=== PATIENT | female | born 1980 | race Caucasian/White ===

== ENCOUNTER 2025-01-10 14:48 | Outpatient (AMB) | payer MEDICARE, MEDICAID, SELFPAY ==
--- NOTE | 2025-01-10 14:49 | MHC.PC.OV ---
Vital Signs 01/10/25 14:52 Height 5 ft 3.5 in Weight 164 lb BMI 28.6 BP 98/60 Blood Pressure Location Lt brachial Position Sitting Respiration 16 Pulse 74 Pulse Source Pulse Oximeter Temp 96.8 F Temp Source Temporal Artery Scan Pulse Oximetry (%) 97 Oxygen Delivery Method Room Air Intake Visit Reasons: routine - see comments, reestablish care Public Health Nutritionist Required: No Accompanied by: Self / Same As Patient Allergies milnacipran (From Savella) Adverse Reaction (Severe, Verified 01/10/25 14:49) suicidal ideation bupropion (From Wellbutrin) Adverse Reaction (Intermediate, Verified 01/10/25 14:49) sedation dexamethasone (From Decadron) Adverse Reaction (Intermediate, Verified 01/10/25 14:49) menorrhagia Iodinated Contrast Media (Contrast Dye) Adverse Reaction (Intermediate, Verified 01/10/25 14:49) Flushing Penicillins Adverse Reaction (Intermediate, Verified 01/10/25 14:49) Hives tizanidine Adverse Reaction (Intermediate, Verified 01/10/25 14:49) mental status changes fentanyl Adverse Reaction (Unknown, Verified 01/10/25 14:49) Unknown Medication List - Last Reconciled 01/10/25 by Marla Meneses MD acetaminophen ER 650 mg PO Q8H albuterol sulfate 90 mcg/actuation 2 puffs inhalation QID PRN budesonide-formoterol 80-4.5 mcg/actuation (Symbicort) 1 inh inhalation BID carisoprodol 350 mg PO TID cholecalciferol (vitamin D3) 1,250 mcg PO QWEEK colchicine 0.6 mg PO BID PRN ferrous gluconate 324 mg PO TID fluticasone propionate 50 mcg/actuation intranasal DAILY lidocaine HCl 2% (Lidocaine Viscous) 10 mL PO TID morphine ER 30 mg PO Q12H naproxen sodium 220 mg PO BID ondansetron HCl 4 mg PO Q8H PRN phytonadione (vitamin K1) 100 mcg PO DAILY Tobacco use date assessed: 01/10/25 Dental Screening Dental Screen Date: 01/10/25 Did you have a dental visit in the last 12 months?: Yes Did you have a dental problem in the last 6 months where you did not have access to dental care?: No Was dental information given to patient?: Patient has dentist HPI HPI Comments History of Present Illness Details The patient is a 44 year old female presenting to [facility] care and for management of chronic pain and medications. Chronic Pain: The patient reports experiencing nocturnal pain characterized as jennifer horse-like cramps in the left tibia and a locking sensation in the foot, causing significant pain upon movement. The patient's pain medication regimen was recently altered by a previous provider, who discontinued the immediate-release opioid and reduced the long-acting morphine from twice a day to once a day. Since these meds have been changed patient has not been able to function as she was when she was on her original regimen. This medication adjustment resulted in increased pain, insomnia, and the patient being in bed most of the day. The patient has not taken morphine since October. For mobility, the patient uses a cane and a walker, which helps prevent falls and provides a place to sit during activities like grocery shopping. Asthma and Productive Cough: The patient manages respiratory symptoms with a Symbicort inhaler and an albuterol inhaler as needed. For the past week, the patient has had a productive cough with blackish-brown sputum. The patient used a nebulizer before the visit for symptom relief. History of Drug-Induced Gastritis: Noted increased abdominal pain with use of naproxen Pt also notes increased discomfort dorsal surface of right hand, some pain with flexion and extension of wrist. Pt reports in terms of her nutrition she has been drinking 4 boost supplement drinks and has gained weight. [facility] Medical History (Updated 01/10/25 @ 17:57 by Marla Meneses MD) Therapeutic drug monitoring Vitamin D deficiency Lumbar spondylolysis Lumbar radiculitis Cervical spinal stenosis Iron deficiency anemia Myofascial pain Unspecified asthma Hypotension Fibromyalgia Surgical History (Updated 01/10/25 @ 11:25 by Marla Meneses MD) H/O eye surgery H/O tubal ligation Previous section History of tonsillectomy Family History (Updated 01/10/25 @ 11:33 by Marla Meneses MD) Sister Breast cancer Maternal Aunt Breast cancer Maternal Grandmother Colon cancer Other Coronary artery disease Diabetes mellitus Lung cancer Mixed hyperlipidemia Primary hypertension Renal cancer Social History Housing: Apartment Patient Tobacco Use Status: Former Tobacco user Years Smoked: 20-25 years e-Cigarette/Vaping Use: Never Used service: No Current occupational status: disabled Questionnaire PHQ-9 Over the last 2 weeks, how often have you been bothered by any of the following problems? 1. Little interest or pleasure in doing things: not at all 2. Feeling down, depressed, or hopeless: not at all 3. Trouble falling or staying asleep, or sleeping too much: several days 4. Feeling tired or having little energy: several days 5. Poor appetite or overeating: several days 6. Feeling bad about yourself - or that you are a failure or have let yourself or your family down: not at all 7. Trouble concentrating on things, such as reading the newspaper or watching television: not at all 8. Moving or speaking so slowly that other people could have noticed. Or the opposite - being so fidgety or restless that you have been moving around a lot more than usual: not at all 9. Thoughts that you would be better off or of hurting yourself in some way: not at all Total score: 3 Depression Screening Interpretation: Negative Depression Screening Done: Yes 90608 - PHQ-9 Billing: Yes Source: Developed by Drs. Tom Ruelas, Moni Pineda, Trace Gardner and colleagues, with an educational netta from [employer]. AUDIT C Alcohol Use Questionnaire (AUDIT-C) 1. How often do you have a drink containing alcohol?: Never 3. How often do you have six or more drinks on one occasion?: Never Total Score: 0 Review of Systems Narrative Review of Systems - Constitutional: Reports intentional weight gain. - HEENT: Reports using a hearing aid (right ear). - Respiratory: Reports a productive cough with blackish-brown sputum for the past week. - Gastrointestinal: Reports good appetite. - Reports history of severe stomach pain after taking naprosyn. - Musculoskeletal: per hpi - Neurological: per hpi Physical exam (Primary Care) Vital Signs: Last Vital Signs Temp 96.8 F 01/10/25 14:52 Pulse 74 01/10/25 14:52 Resp 16 01/10/25 14:52 BP 98/60 01/10/25 14:52 Pulse Ox 97 01/10/25 14:52 Oxygen Delivery Method Room Air 01/10/25 14:52 BMI result Body Mass Index 28.6 Tobacco/Smoking Status: Tobacco use Status Tobacco use date assessed 01/10/25 01/10/25 14:51 Patient Tobacco Use Status Former Tobacco user 01/10/25 14:59 e-Cigarette/Vaping Use Never Used 01/10/25 14:59 PHQ-9: PHQ-9 Score PHQ-9: Total score 3 01/10/25 14:51 Depression Screening Interpretation: Negative Narrative Physical Exam - ENT: normal tympanic membranes bilaterally -Pulmonary: Auscultation reveals slight wheezing and some coarseness, with good air movement. - Cardiovascular: Heart has a normal rate and regular rhythm with normal sounds. - Msk: right hand- pain with ulnar deviation of right wrist, no redness Coding Level of Care Code Est Pt Level 4 (72555) Complex visit Add On G2211 Diagnoses Fibromyalgia M79.7 Myofascial pain M79.18 Moderate persistent asthma with acute exacerbation J45.41 Asthma severity: moderate Asthma persistence: persistent Asthma complication type: with acute exacerbation Additional Codes PHQ-9 - 23254 - PHQ-9 Billing: Yes ([id number]) Assessment & Plan Assessment & Plan (1) Fibromyalgia: Code(s): M79.7 - Fibromyalgia Category: Medical (2) Myofascial pain: Code(s): M79.18 - Myalgia, other site Category: Medical (3) Unspecified asthma: Code(s): J45.909 - Unspecified asthma, uncomplicated Category: Medical Qualifiers: Asthma severity: moderate Asthma persistence: persistent Asthma complication type: with acute exacerbation Qualified Code(s): J45.41 - Moderate persistent asthma with (acute) exacerbation Plan Assessment and Plan 1. Chronic Pain Syndrome The patient's chronic pain is currently poorly controlled following change in regimen. This has resulted in significant functional impairment, insomnia, and distress. Patient was previously evaluated by set painter at [facility]. We will re-establish a stable and effective pain management plan. A new pain contract will be signed. After obtaining a urine toxicology screen, the plan is to prescribe morphine ER 30 mg once daily and morphine IR 15 mg twice daily for breakthrough pain, and continue carisoprodol (Soma). 2. Asthma with Productive Cough The patient reports a one-week history of productive cough with dark sputum, and the exam reveals slight wheezing, suggesting a possible exacerbation or bronchitis. The patient will continue using the Symbicort and albuterol inhalers as needed and monitor symptoms. Further evaluation will be pursued if symptoms worsen. Take z-pack in the interim and use nebulizer machine. 3. Health Maintenance and Care Coordination As the patient is re-establishing care, we will obtain comprehensive fasting labs and a urine toxicology screen. We will request medical records from the previous practice. The patient will proceed with a scheduled endoscopy at [facility] in February . 4. Right hand pain- differential includes tendinitis, continue to monitor use ice prn, topical rub, update if no improvement in symptoms. Plan - Obtain fasting labs and a urine toxicology screen. - Continue vitamin D. - Pending results of the urine toxicology screen, will prescribe Morphine ER 30 mg once daily and Morphine IR 15 mg twice daily. - Continue carisoprodol (Soma). - Continue Symbicort and albuterol inhalers as needed for asthma. - Pain management contract signed Discussion Notes The plan of care was outlined, which includes obtaining fasting labs and a urine toxicology screen. We also discussed the necessity of signing a new pain management contract. Patient Instructions - Please go for your fasting lab work and urine test tomorrow morning. - After your lab results are reviewed, I will send new prescriptions for your pain medication - The new pain medication plan will be one long-acting morphine (30 mg) at night and one short-acting morphine (15 mg) twice a day for breakthrough pain. - Continue using your inhalers (Symbicort and albuterol) as needed for your breathing. Orders: Orders Comprehensive Met. Panel Today D50.9 - Iron deficiency anemia, unspecified, E55.9 - Vitamin D deficiency, unspecified, I95.9 - Hypotension, unspecified IRON PROFILE Today D50.9 - Iron deficiency anemia, unspecified, E55.9 - Vitamin D deficiency, unspecified, I95.9 - Hypotension, unspecified TSH reflex Free T4 Today D50.9 - Iron deficiency anemia, unspecified, E55.9 - Vitamin D deficiency, unspecified, I95.9 - Hypotension, unspecified Lipid Panel Today D50.9 - Iron deficiency anemia, unspecified, E55.9 - Vitamin D deficiency, unspecified, I95.9 - Hypotension, unspecified Cannabinoid Screen Urine Today Z51.81 - Encounter for therapeutic drug level monitoring Alcohol, Ethyl Urine Screen Today Z51.81 - Encounter for therapeutic drug level monitoring Opiate Screen Urine Today Z51.81 - Encounter for therapeutic drug level monitoring Magnesium Today I95.9 - Hypotension, unspecified Complete Blood Count Auto Diff Today D50.9 - Iron deficiency anemia, unspecified, E55.9 - Vitamin D deficiency, unspecified, I95.9 - Hypotension, unspecified Ferritin Today D50.9 - Iron deficiency anemia, unspecified, E55.9 - Vitamin D deficiency, unspecified, I95.9 - Hypotension, unspecified Vitamin B12 Today D50.9 - Iron deficiency anemia, unspecified, E55.9 - Vitamin D deficiency, unspecified, I95.9 - Hypotension, unspecified Vitamin D 25-OH Total Today D50.9 - Iron deficiency anemia, unspecified, E55.9 - Vitamin D deficiency, unspecified, I95.9 - Hypotension, unspecified Cocaine Screen Urine Today Z51.81 - Encounter for therapeutic drug level monitoring Benzodiazepines Screen Urine Today Z51.81 - Encounter for therapeutic drug level monitoring Medications: New azithromycin For 250 mg dose pack: take 500 mg today (day 1), then 250 mg for 4 days (days 2-5) PO 6 tabs 0RF
[2025-01-10 14:52] VITALS: BP 98/60; PULSE 74; RESP 16; TEMP 36; O2SAT 97; BMI 28.6
--- OUTSIDE RECORDS SUMMARY | 2025-01-10 18:06 | XMS_ITS | Clinical Summary ---
Author Organization [facility] Address [address] [place] [address] Care Team Providers Care Fish Cutter Name Role Phone Pcp, No Primary Care Provider Unavailabl e Allergies Active Allergy Reactions Criticality Noted Date Comments Fentanyl Anaphylaxis High 05/07/2024 Medications No known medications Social History Tobacco Use Types Packs/Day Years Used Date Smoking Tobacco: Former Cigarettes Tobacco Cessation:Counseling Given: Not Answered Alcohol Use Standard Drinks/Week Comments Not Currently 0 (1 standard drink = 0.6 oz pur e alcohol) Comments Unknown Sex and Gender Information Value Date Recorded Sex Assigned at Female 12/31/2023 10:07 AM EST Legal Sex Female 10:03 AM EST Gender Identity Female 12/31/2023 10:07 AM EST Sexual Orientation Heterosexual (straight) 12/30 10:07 AM EST Last Filed Vital Signs Vital Sign Reading Time Taken Comments Blood Pressure 102/55 05/07/2024 8:45 AM EDT Pulse 65 05/07/2024 8:45 AM EDT Temperature 35.1 C (95.1 F) 05/07/2024 8:44 AM EDT Respiratory Rate - - Oxygen Saturation 99% 05/07/2024 8:45 AM EDT Inhaled Oxygen Concentration - - Weight 70 kg (154 lb 5.2 oz) 05/07/2024 8:44 AM EDT Height - - Body Mass Index - - Plan of Treatment Health Maintenance Due Date Last Done Comments Hepatitis C Virus Screening 1979 HIV Screening 10/16/1992 DTaP/Tdap/Td Vaccines (1 - Tdap) 10/16/1998 Hepatitis B Vaccines (1 of 3 - 19+ 3-dose series) 10/16/1998 Pap Smear (Ages 21-65) 10/16/2000 Mammogram 2019 Influenza Vaccine 09/10/2024 12/31/2017, , 01/02/2016, Additional history exists COVID-19 Vaccine ( season) 2024 Colonoscopy 10/16/2024 HPV Vaccines (No Doses Required) Completed Pneumococcal Vaccine: Pediatric (0-5 Years) and At-Risk Patients (6 to 49 Years) Aged Out No longer eligible based on patient's age to complete this topic Insurance MEDICARE PART A & B Care Teams Fish Cutter Relationship Specialty Start Date End Date Pcp, No PCP - General General Medicine 01/05/24
--- OUTSIDE RECORDS SUMMARY | 2025-01-10 18:06 | XMS_ITS | Clinical Summary ---
Author Organization [facility] Address [address] [place] [address] Care Team Providers Care Rack Puller Name Role Phone Marla Meneses MD Primary Care Provider [phone]- [phone] Surgical History Surgery Date Site/Laterality Comments TONSILLECTOMY PROCEDURE: HISTORICAL TONSILLECTOMY BREAST LUMPECTOMY [facility] age 19's Left PROCEDURE: HISTORICAL BREAST LUMPECTOMY; COMMENT: benign, just below left nipple SECTION 06/24/14 Disandro PROCEDURE: HISTORICAL ; COMMENT: healthy son 9.9&9, T.L. Medical History Medical History Date Comments Fibromyalgia DX:Fibromyalgia Bronchitis DX:Bronchitis Asthma 04/29/2011 DX:Asthma Goiter 04/01/2013 DX:Goiter Hyperlipidemia 04/15/2013 DX:Hyperlipidemi a Closed left ankle fracture age 13 casted DX:Cl osed left ankle fracture Family History Medical History Relation Name Comments Diabetes Father Liver cancer Father Lung cancer Grandparent 1 Colon cancer Maternal Grandmother Breast cancer Mother Diabetes Mother Diabetes Sister 1 Relation Name Status Comments Aunt 1 (Age 50's) MatAunt Breast CA age onset 40-50 Aunt 2 (Age 50's) Mat Aunt diffuse CA unknown type Aunt 3 (Age 63) Mat Aunt L ymphoma Aunt 4 Alive Mat Aunt-bilat breast cancer Dx'd age 46, mastectomies Brother (Age 15) murdered Father Alive CAD, diabetes, HTN, former smoker Grandparent 1 Grandparent 2 Maternal Grandmother (Age 61) di ed of cancer in lungs, smoker Mother Alive Diabetes, HTN, fibromyalgia, hyperlipidemia Paternal Grandmother Alive thyroid cancer Sister 1 Sister 2 Alive x3, 2 Bipolar, 1 Fibromyalgia, 1 Breast CA onset age 38 Social History Tobacco Use Types Packs/Day Years Used Date Smoking Tobacco: Former Cigarettes 0.3 Q uit: 11/29/2010 Smokeless Tobacco: Never Alcohol Use Standard Drinks/Week Comments No 0 (1 standard drink = 0.6 oz pur e alcohol) Comments Unknown Sex and Gender Information Value Date Recorded Sex Assigned at Not on file Legal Sex Female 1:13 AM EST Gender Identity Not on file Sexual Orientation Not on file Obstetrics History Plan of Treatment Health Maintenance Due Date Last Done Comments Breast Cancer Screening 1979 Hepatitis B Vaccines (1 of 3 - 19+ 3-dose series) 10/16/1998 Cervical Cancer Screening: Pap Smear 10/16/2000 HPV Vaccines (1 - 3-dose SCDM series) 10/16/2006 Depression Screening 02/11/2024 DTaP,Tdap,and Td Vaccines (3 - Td or Tdap) 05/17/2024 05/17/2014, 07/02/2011 COVID-19 Vaccine ( season) 2024 Influenza Vaccine (#1) 2024 8, 11/20/2016, 01/02/2016, Additional history exists RSV Immunization Adult Patients (1 - 1-dose 75+ series) 10/16/2054 Pneumococcal Vaccine: Pediatrics (0 to 5 Years) and At-Risk Patients (6 to 49 Years) Aged Out 07/03/2016, 04/01/2013 No longer eligibl e based on patient's age to complete this topic HIB Vaccines Aged Out No longer eligi ble based on patient's age to complete this topic Hepatitis A Vaccines Aged Out No long er eligible based on patient's age to complete this topic IPV Vaccines Aged Out No longer eligi ble based on patient's age to complete this topic MMR Vaccines Aged Out No longer eligi ble based on patient's age to complete this topic Meningococcal ACWY Vaccine Aged Out N o longer eligible based on patient's age to complete this topic Meningococcal B Vaccine Aged Out No l onger eligible based on patient's age to complete this topic RSV Immunization Patients Under 20 months Aged Out No longer eligible based on patient's age to complete this topic Varicella Vaccines Aged Out No longer eligible based on patient's age to complete this topic Care Teams Rack Puller Relationship Specialty Start Date End Date Marla Meneses MD [address] [place] [address] PCP - General 03/24/14
--- OUTSIDE RECORDS SUMMARY | 2025-01-10 18:06 | XMS_ITS ---
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
== END 2025-01-10 16:00 | disposition home or self-care (01) ==
LOC: HO.HMCHD 14:48
PROVIDERS: PCP Internal Medicine; Visit Provider Internal Medicine
DX: M79.7 Fibromyalgia (principal); M79.18 Myalgia, other site; J45.41 Moderate persistent asthma with (acute) exacerbation

== ENCOUNTER → 2025-01-10 14:48 | Outpatient (BNVA) | payer MEDICARE, MEDICAID, SELFPAY | PROVIDERS: PCP Internal Medicine; Visit Provider Internal Medicine | DX: M79.7 Fibromyalgia (principal); J45.41 Moderate persistent asthma with (acute) exacerbation; M79.641 Pain in right hand; Z51.81 Encounter for therapeutic drug level monitoring; Z13.31 Encounter for screening for depression; Z87.891 Personal history of nicotine dependence | CPT/HCPCS: 96127; 99212 ==

== ENCOUNTER 2025-01-11 08:23 | Outpatient (REF) | payer MEDICARE, MEDICAID, SELFPAY ==
--- OUTSIDE RECORDS SUMMARY | 2025-01-11 08:28 | XMS_ITS | Clinical Summary ---
Author Organization [facility] Address [address] [place] [address] Care Team Providers Care Assembly Line Worker Name Role Phone Marla Meneses MD Primary Care Provider +1- [phone] Surgical History Surgery Date Site/Laterality Comments TONSILLECTOMY [...] age to complete this topic Care Teams Assembly Line Worker Relationship Specialty Start Date End Date Marla Meneses MD [address] [place] [address] PCP - General 03/24/14
--- OUTSIDE RECORDS SUMMARY | 2025-01-11 08:28 | XMS_ITS | Clinical Summary ---
Author Organization [facility] Address [address] [place] [address] Care Team Providers Care Web Services Architect Name Role Phone Pcp, No Primary Care [...] MEDICARE PART A & B Care Teams Web Services Architect Relationship Specialty Start Date End Date Pcp, No PCP - General General Medicine 01/05/24
[2025-01-11 13:30] LABS: MANUAL DIFF FLAG NO
[2025-01-11 13:41] LABS: Hematocrit 37.5 % (37.0-47.0); Hemoglobin 12.1 g/dl (12.0-16.0); Imm Gran Abs Auto 0.03 X10*3/uL (0.00-0.03); Imm Gran Pct Auto 0.3 % (0.0-0.4); Lymphocytes Absolute Auto 1.8 X10*3/uL (1.2-4.9); Mean Corpuscular HGB Conc 32.3 g/dl (31.0-35.0); Mean Corpuscular Hemoglobin 29.4 pg (27.0-33.0); Mean Corpuscular Volume 91.0 fL (80.0-98.0); NRBC Abs Auto 0.000 X10*3/uL (0.0-0.012); NRBC Pct Auto 0.0 /100WBC (0.0-0.2); Platelet Count 310 X10*3/uL (160-400); Red Blood Count 4.12 X10*6/uL (4.20-5.50); White Blood Count 10.9 X10*3/uL (4.8-10.8)
[2025-01-11 13:46] LABS: Cannabinoid Screen Urine POSITIVE (Not Detect)
[2025-01-11 13:59] LABS: Alanine Aminotransferase 15 U/L (0-31); Albumin Level 4.2 g/dL (3.5-5.0); Alkaline Phosphatase 57 U/L (39-117); Anion Gap 11 (12-20); Aspartate Amino Transferase 25 U/L (5-31); Blood Urea Nitrogen 10 mg/dL (9-16); Calcium 9.3 mg/dL (8.4-10.2); Carbon Dioxide 30 mmol/L (22-29); Chloride 107 mmol/L (96-108); Cholesterol 233 mg/dL (<200); Estimated Glomerular Filt Rate > 60; HDL Cholesterol 66 mg/dL (>40); Iron 93 mcg/dL (30-160); Magnesium 2.1 mg/dL (1.6-2.6); Percent Iron Saturation 27 % (15-50); Potassium 4.9 mmol/L (3.3-5.1); Sodium 143 mmol/L (135-145); Total Iron Binding Capacity 345 mcg/dL (228-428); Total Protein 6.4 g/dL (6.5-8.0); Triglycerides 146 mg/dL (<150); Unsaturated Iron Binding 252 ug/dL
[2025-01-11 14:14] LABS: Ferritin 16 ng/mL (10-250)
[2025-01-11 14:18] LABS: Vitamin B12 604 pg/mL (200-900)
[2025-01-17 10:47] LABS: Alcohol, Ethyl Urine Screen NEGATIVE
== END 2025-01-11 08:24 | disposition home or self-care (01) ==
LOC: HO.HKASLDS 08:23
PROVIDERS: PCP Internal Medicine; Visit Provider Internal Medicine
DX: Z51.81 Encounter for therapeutic drug level monitoring (principal); Z13.29 Encounter for screening for other suspected endocrine disorder; I95.9 Hypotension, unspecified; D50.9 Iron deficiency anemia, unspecified; E55.9 Vitamin D deficiency, unspecified
CPT/HCPCS: 80053; 80061; 80307; 82306; 82607; 82728; 83540; 83735; 84443; 85025

== ENCOUNTER 2025-01-13 14:23 | Outpatient (REF) | payer MEDICARE, MEDICAID, SELFPAY ==
--- OUTSIDE RECORDS SUMMARY | 2025-01-13 19:56 | XMS_ITS | Encounter Summary ---
Author Organization [facility] [employer] [facility] Prior to 12/12/2023 Address [address] [place] [address] Care Team Providers Care Sheet Cutter Name Role Phone Madeline Rogers MD Primary Care Provider Marla Maravilla MD Primary Care Provider Kelsey reyes Encounter Details Date Type Department Care Team Description 03/20/2012 Night Triage Doc Medical Records [address] [place] [id number] Abstract, Provider Social History Tobacco Use Types Packs/Day Years Used Date Smoking Tobacco: Former Cigarettes 15 Q uit: 11/29/2010 Smokeless Tobacco: Never Alcohol Use Standard Drinks/Week Comments No 0 (1 standard drink = 0.6 oz pur e alcohol) Sex Assigned at Date Recorded Not on file documented as of this encounter Plan of Treatment Not on file documented as of this encounter Visit Diagnoses Not on filedocumented in this encounter Care Teams Sheet Cutter Relationship Specialty Start Date End Date Madeline Rogers MD PCP - General 06/10/08 03/23/14 Marla Meneses MD PCP - General 03/24/14 documented as of this encounter
--- OUTSIDE RECORDS SUMMARY | 2025-01-13 19:56 | XMS_ITS | Encounter Summary ---
Author Organization [facility] [employer] [facility] Prior to 12/12/2023 Address [address] [place] [address] Care Team Providers Care Supervisor Pipe Joints Name Role Phone Madeline Rogers MD Primary Care Provider Marla Maravilla MD Primary Care Provider Kelsey reyes Encounter Details Date Type Department Care Team Description 05/28/2010 Release of Information Medical Records [address] [place] [id number] Abstract, Provider Social History Tobacco Use Types Packs/Day Years Used Date Smoking Tobacco: Every Day Cigarettes 1 15 Comments:smokes 4-5 cigs qd Alcohol Use Standard Drinks/Week Comments Not Asked 0 (1 standard drink = 0.6 oz pur e alcohol) Sex Assigned at Date Recorded Not on file documented as of this encounter Plan of Treatment Not on file documented as of this encounter Visit Diagnoses Not on filedocumented in this encounter Care Teams Supervisor Pipe Joints Relationship Specialty Start Date End Date Madeline Rogers MD PCP - General 06/10/08 03/23/14 Marla Meneses MD PCP - General 03/24/14 documented as of this encounter
--- OUTSIDE RECORDS SUMMARY | 2025-01-13 19:56 | XMS_ITS | Encounter Summary ---
Author Organization [facility] Prior to 12/12/2023 Address [address] [place] [address] Care Team Providers Care Dietitian Helper Name Role Phone Madeline Rogers MD Primary Care Provider Marla Maravilla MD Primary Care Provider Kelsey reyes Encounter Details Date Type Department Care Team Description 03/20/2012 Telephone Adult Medicine [address] [address] Piyush Edmonds MD Social History Tobacco Use Types Packs/Day Years Used Date Smoking Tobacco: Former Cigarettes 15 Q uit: 11/29/2010 Smokeless Tobacco: Never Alcohol Use Standard Drinks/Week Comments No 0 (1 standard drink = 0.6 oz pur e alcohol) Sex Assigned at Date Recorded Not on file documented as of this encounter Miscellaneous Notes * Telephone Encounter - Madeline Rogers MD - 03/22/2012 9:22 AM EST FYI, since I do not see that this was handled on Friday. The Hydrocodone/APAP 10-300 #84 was given by Katie in Physiatry 02/14/12, 03/05/12 and 03/19/12, then I signed the patient's contract for [facility], #112 per 28 at [facility] on 03/20/12. I'll fax the #112 amount now, Friday AM, with note to pharmacist on Rx to cancel Katie's 03/19/12 ifnot already filled. 03/22/12 9:31am. Madeline Rogers MD * Telephone Encounter - Piyush Edmonds MD - 03/20/2012 3:52 PM EST Broom Man: Issue with pharmacy & wrong narcotic referred to nurse triage. Piyush Edmonds MD documented in this encounter Plan of Treatment Not on file documented as of this encounter Visit Diagnoses Not on filedocumented in this encounter Care Teams Dietitian Helper Relationship Specialty Start Date End Date Madeline Rogers MD PCP - General 06/10/08 03/23/14 Marla Meneses MD PCP - General 03/24/14 documented as of this encounter
--- OUTSIDE RECORDS SUMMARY | 2025-01-13 19:56 | XMS_ITS | Encounter Summary ---
Author Organization [facility] Prior to 12/12/2023 Address [address] [place] [address] Care Team Providers Care Domestic Technician Name Role Phone Madeline Rogers MD Primary Care Provider Marla Maravilla MD Primary Care Provider Kelsey reyes Encounter Details Date Type Department Care Team Description 05/05/2012 Director [facility] Report Medical Records [address] [place] [address] Sanjeev Soto MD Social History Tobacco Use Types Packs/Day [...] on filedocumented in this encounter Care Teams Domestic Technician Relationship Specialty Start Date End Date Madeline Rogers MD PCP - General 06/10/08 03/23/14 Marla Meneses MD PCP - General 03/24/14 documented as of this encounter
--- OUTSIDE RECORDS SUMMARY | 2025-01-13 19:56 | XMS_ITS | Encounter Summary ---
Author Organization [facility] Prior to 12/12/2023 Address [address] [place] [address] Care Team Providers Care Pharmacogeneticist Name Role Phone Madeline Rogers MD Primary Care Provider Marla Maravilla MD Primary Care Provider Kelsey reyes Encounter Details Date Type Department Care Team Description 06/12/2010 Hoop Riveting Machine Operator Helper Report Medical Records [address] [place] [address] Marco Oleary MD Social History Tobacco Use Types Packs/Day [...] on filedocumented in this encounter Care Teams Pharmacogeneticist Relationship Specialty Start Date End Date Madeline Rogers MD PCP - General 06/10/08 03/23/14 Marla Meneses MD PCP - General 03/24/14 documented as of this encounter
--- OUTSIDE RECORDS SUMMARY | 2025-01-13 19:56 | XMS_ITS | Encounter Summary ---
Author Organization [facility] Prior to 12/12/2023 Address [address] [place] [address] Care Team Providers Care Mop Handle Assembler Name Role Phone Madeline Rogers MD Primary Care Provider Marla Maravilla MD Primary Care Provider Kelsey reyes Encounter Details Date Type Department Care Team Description 03/18/2011 Transfer Records Medical Records [address] [place] [address] Social History Tobacco Use Types Packs/Day Years Used Date Smoking Tobacco: Former Cigarettes 1 15 Q uit: 11/29/2010 Smokeless Tobacco: Never Comments:smokes 4-5 cigs qd Alcohol Use Standard Drinks/Week Comments No 0 (1 standard drink = 0.6 oz pur e alcohol) Sex Assigned at Date Recorded Not on file documented as of this encounter Plan of Treatment Not on file documented as of this encounter Visit Diagnoses Not on filedocumented in this encounter Care Teams Mop Handle Assembler Relationship Specialty Start Date End Date Madeline Rogers MD PCP - General 06/10/08 03/23/14 Marla Meneses MD PCP - General 03/24/14 documented as of this encounter
--- OUTSIDE RECORDS SUMMARY | 2025-01-13 19:57 | XMS_ITS | Encounter Summary ---
Author Organization [facility] Prior to 12/12/2023 Address [address] [place] [address] Care Team Providers Care Steward Dishwasher Name Role Phone Madeline Rogers MD Primary Care Provider Unav Marla Lara MD Primary Care Provider Unava ilsilvano Reason for Visit * Reason Onset Date Comments Medication 01/17/2012 Encounter Details Date Type Department Care Team Description 01/17/2012 Telephone Physiatry - [address] [address] Katie Clinton PA-C Medication Social History Tobacco Use Types Packs/Day Years Used Date Smoking Tobacco: Former Cigarettes 15 Q uit: 11/29/2010 Smokeless Tobacco: Never Alcohol Use Standard Drinks/Week Comments No 0 (1 standard drink = 0.6 oz pur e alcohol) Sex Assigned at Date Recorded Not on file documented as of this encounter Miscellaneous Notes * Telephone Encounter - Keli Torres - 01/17/2012 4:40 PM EST Patient claims that the pharmacy only got one of her scripts after today's appointment. The vicoprofen did not make it. Patient aware that there is no provider in the Physiatry department until Friday. documented in this encounter Plan of Treatment Not on file documented as of this encounter Visit Diagnoses Not on filedocumented in this encounter Care Teams Steward Dishwasher Relationship Specialty Start Date End Date Madeline Rogers MD PCP - General 06/10/08 03/23/14 Marla Meneses MD PCP - General 03/24/14 documented as of this encounter
--- OUTSIDE RECORDS SUMMARY | 2025-01-13 19:59 | XMS_ITS | Encounter Summary ---
Author Organization [facility] Prior to 12/12/2023 Address [address] [place] [address] Care Team Providers Care Gang Miner Name Role Phone Madeline Rogers MD Primary Care Provider Marla Maravilla MD Primary Care Provider Unava ilsilvano Reason for Visit * Reason Onset Date Comments refill request 02/28/2012 Encounter Details Date Type Department Care Team Description 02/28/2012 Refill Physiatry - [place] [address] [place] [address] Katie Clinton PA-C refill request Social History Tobacco Use Types Packs/Day Years Used Date Smoking Tobacco: Former Cigarettes 15 Q uit: 11/29/2010 Smokeless Tobacco: Never Alcohol Use Standard Drinks/Week Comments No 0 (1 standard drink = 0.6 oz pur e alcohol) Sex Assigned at Date Recorded Not on file documented as of this encounter Miscellaneous Notes * Telephone Encounter - Madeline Sharan - 02/28/2012 10:35 AM EST (THE MEDICATION REQUESTED IS ON THE MED LIST ABOVE) All of the medications requested were on the CURRENT MEDS list Did you check the Pharmacy information above?: YES Patient wants: 30 -day supply Patient would like script to be: E-PRESCRIBED/FAXED TO PHARMACY Is this a mail order prescription request ? NO Indicate how soon the patient needs the script: BY THE END OF THE DAY Patients current insurance carrier is: Payor: [employer] FFS Plan: FFS HMO $0 [employer] [id number] Product Type: MEDICAID RISK documented in this encounter Plan of Treatment Not on file documented as of this encounter Visit Diagnoses Not on filedocumented in this encounter Care Teams Gang Miner Relationship Specialty Start Date End Date Madeline Rogers MD PCP - General 06/10/08 03/23/14 Marla Meneses MD PCP - General 03/24/14 documented as of this encounter
--- OUTSIDE RECORDS SUMMARY | 2025-01-13 19:59 | XMS_ITS | Encounter Summary ---
Author Organization [facility] Prior to 12/12/2023 Address [address] [place] [address] Care Team Providers Care Row Boss Hoeing Name Role Phone Madeline Rogers MD Primary Care Provider Marla Maravilla MD Primary Care Provider Kelsey reyes Encounter Details Date Type Department Care Team Description 11/22/2013 Telephone Adult Medicine [address] [address] Madeline Rogers MD Social History Tobacco Use Types Packs/Day [...] on filedocumented in this encounter Care Teams Row Boss Hoeing Relationship Specialty Start Date End Date Madeline Rogers MD PCP - General 06/10/08 03/23/14 Marla Meneses MD PCP - General 03/24/14 documented as of this encounter
--- OUTSIDE RECORDS SUMMARY | 2025-01-13 19:59 | XMS_ITS | Encounter Summary ---
Author Organization [facility] Prior to 12/12/2023 Address [address] [place] [address] Care Team Providers Care Studio Assistant Name Role Phone Madeline Rogers MD Primary Care Provider Marla Maravilla MD Primary Care Provider Unava ilable Reason for Visit * Reason Onset Date Comments TEST RESULTS 07/09/2013 Encounter Details Date Type Department Care Team Description 07/09/2013 Telephone Adult Medicine [address] [address] Madeline Rogers MD TEST RESULTS Social History Tobacco Use Types Packs/Day Years Used Date Smoking Tobacco: Former Cigarettes 15 Q uit: 11/29/2010 Smokeless Tobacco: Never Alcohol Use Standard Drinks/Week Comments No 0 (1 standard drink = 0.6 oz pur e alcohol) Sex Assigned at Date Recorded Not on file documented as of this encounter Miscellaneous Notes * Telephone Encounter - Madeline Rogers MD - 07/09/2013 5:05 PM EDT I called patient, normal labs regarding bruising. 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 Sed rate of 2 is reassuring, normal CBC. Will observe for now, follow up next week if persists or any new symptoms. Electronically Signed By: Madeline Rogers MD 07/09/2013 5:07 PM * Telephone Encounter - María Sanz R.N. - 07/09/2013 4:53 PM EDT Some results are back in EMR * Telephone Encounter - Carolina Brandt - 07/09/2013 4:45 PM EDT Inform patient: ANY URGENT OR ABNORMAL RESULTS WIILL RESULT IN A CALL BACK TO THE PATIENT RONAN. Type of test: :blood work Date test was performed: 07.09.13 Where was the test performed: [facility] Who ordered this test?: Madeline Rogers Is the doctor here today?: YES Can the message wait until the doctor returns?: YES PATIENT STATES SHE WAS TOLD BY DR. ROGERS TO CALL THE OFFICE IF SHE DID NOT HEAR ANYTHING BY 4:30PM TODAY. STATES HER BLOOD WORK WAS STAT. PLEASE CALL IF PATIENT'S PCP IS NOT IN INSTRUCT PATIENT THAT THEY WILL RECEIVE A CALL BACK WHEN THE PCP IS IN THE OFFICE NEXT. documented in this encounter Plan of Treatment Not on file documented as of this encounter Visit Diagnoses Not on filedocumented in this encounter Care Teams Studio Assistant Relationship Specialty Start Date End Date Madeline Rogers MD PCP - General 06/10/08 03/23/14 Marla Meneses MD PCP - General 03/24/14 documented as of this encounter
--- OUTSIDE RECORDS SUMMARY | 2025-01-13 20:00 | XMS_ITS | Clinical Summary ---
Author Organization [facility] Address [address] [place] [address] Care Team Providers Care Pheresis Specialist Name Role Phone Marla Meneses MD Primary Care Provider [phone] Surgical History Surgery Date Site/Laterality Comments TONSILLECTOMY [...] age to complete this topic Care Teams Pheresis Specialist Relationship Specialty Start Date End Date Marla Meneses MD [address] [place] [address] PCP - General 03/24/14
--- OUTSIDE RECORDS SUMMARY | 2025-01-13 20:01 | XMS_ITS | Encounter Summary ---
Author Organization [facility] Prior to 12/12/2023 Address [address] [place] [address] Care Team Providers Care Packager Or Packer And Weigher Name Role Phone Madeline Rogers MD Primary Care Provider Marla Maravilla MD Primary Care Provider Kelsey reyes Encounter Details Date Type Department Care Team Description 12/02/2013 Release of Information Medical Records [address] [place] [address] Abstract, Provider Social History Tobacco Use Types [...] on filedocumented in this encounter Care Teams Packager Or Packer And Weigher Relationship Specialty Start Date End Date Madeline Rogers MD PCP - General 06/10/08 03/23/14 Marla Meneses MD PCP - General 03/24/14 documented as of this encounter
--- OUTSIDE RECORDS SUMMARY | 2025-01-13 20:01 | XMS_ITS | Encounter Summary ---
Author Organization [facility] Prior to 12/12/2023 Address [address] [place] [address] Care Team Providers Care Ground Crew Chief Name Role Phone Madeline Rogers MD Primary Care Provider Marla Maravilla MD Primary Care Provider Kelsey reyes Encounter Details Date Type Department Care Team Description 02/14/2014 Night Triage Doc Medical Records [address] [place] [id number] Abstract, Provider Social History Tobacco Use Types [...] on filedocumented in this encounter Care Teams Ground Crew Chief Relationship Specialty Start Date End Date Madeline Rogers MD PCP - General 06/10/08 03/23/14 Marla Meneses MD PCP - General 03/24/14 documented as of this encounter
--- OUTSIDE RECORDS SUMMARY | 2025-01-13 20:01 | XMS_ITS | Encounter Summary ---
Author Organization [facility] Prior to 12/12/2023 Address [address] [place] [address] Care Team Providers Care Senior Stereo Compiler Team Lead Name Role Phone Madeline Rogers MD Primary Care Provider Marla Maravilla MD Primary Care Provider Kelsey reyes Encounter Details Date Type Department Care Team Description 08/06/2012 Controlled Substance Contract with Plan Medical Records [address] [place] [id number] Abstract, Provider Social History Tobacco Use Types [...] on filedocumented in this encounter Care Teams Senior Stereo Compiler Team Lead Relationship Specialty Start Date End Date Madeline Rogers MD PCP - General 06/10/08 03/23/14 Marla Meneses MD PCP - General 03/24/14 documented as of this encounter
--- OUTSIDE RECORDS SUMMARY | 2025-01-13 20:01 | XMS_ITS | Encounter Summary ---
Author Organization [facility] Prior to 12/12/2023 Address [address] [place] [address] Care Team Providers Care Qa Tester Name Role Phone Madeline Rogers MD Primary Care Provider Marla Maravilla MD Primary Care Provider Kelsey reyes Encounter Details Date Type Department Care Team Description 02/19/2014 Transfer Records Medical Records [address] [place] [id number] Abstract, Provider Social History Tobacco Use Types [...] on filedocumented in this encounter Care Teams Qa Tester Relationship Specialty Start Date End Date Madeline Rogers MD PCP - General 06/10/08 03/23/14 Marla Meneses MD PCP - General 03/24/14 documented as of this encounter
--- OUTSIDE RECORDS SUMMARY | 2025-01-13 20:01 | XMS_ITS | Encounter Summary ---
Author Organization [facility] Prior to 12/12/2023 Address [address] [place] [address] Care Team Providers Care Epic Prelude Analyst Name Role Phone Madeline Rogers MD Primary Care Provider Marla Maravilla MD Primary Care Provider Kelsey reyes Encounter Details Date Type Department Care Team Description 07/30/2012 Lead Refinery Supervisor Report Medical Records [address] [place] [address] Eligio Mckeon Social History Tobacco Use Types Packs/Day Years [...] on filedocumented in this encounter Care Teams Epic Prelude Analyst Relationship Specialty Start Date End Date Madeline Rogers MD PCP - General 06/10/08 03/23/14 Marla Meneses MD PCP - General 03/24/14 documented as of this encounter
== END 2025-01-13 14:24 | disposition home or self-care (01) ==
LOC: HO.HKASLDS 14:23
PROVIDERS: PCP Internal Medicine; Visit Provider Internal Medicine
DX: Z51.81 Encounter for therapeutic drug level monitoring (principal)
CPT/HCPCS: 80307; 80353